=== PATIENT | female | born 1980 | race American Indian/Alaskan Native ===

== ENCOUNTER 2018-04-04 10:51 | Emergency (ER) | payer MEDICAID ==
[~2018-04-04] VITALS: Ht 170.2 cm; Wt 93.7 kg
[~2018-04-04 10:51] MED LIST: IBUP-1594 PO; PHEN-716 PO
[2018-04-04 10:55] VITALS: BP 147/95
[2018-04-04] MEDS ORDERED: DIAZ5TAB PO (11:07)
[2018-04-04] MEDS ORDERED: ketorolac trometh inj. 60 MG/2 ML VIAL IM ONE (11:10)
[2018-04-04] MEDS ORDERED: HYDROcodone/acetaminophen 10/325mg tab PO ONE (11:10)
[2018-04-04] MEDS ORDERED: diazepam 5mg tablet PO ONE (11:10)
== END 2018-04-04 11:41 | disposition home or self-care (01) ==
LOC: ER 10:52
DX: G89.29 Other chronic pain (principal); M54.2 Cervicalgia; J45.909 Unspecified asthma, uncomplicated; Z88.0 Allergy status to penicillin; Z79.899 Other long term (current) drug therapy
CPT/HCPCS: 96372; 99283; J1885

== ENCOUNTER 2018-08-19 06:58 | Emergency (ER) | payer MEDICAID ==
[~2018-08-19] VITALS: Ht 170.2 cm; Wt 83.4 kg
[~2018-08-19 06:58] MED LIST changes: +DIAZ5TAB PO
[2018-08-19] MEDS ORDERED: ondansetron 4 MG/5 ML oral solution 5ml CUP PO ONE (07:25)
[2018-08-19] MEDS ORDERED: nitroGLYCERIN 0.4mg SUBLingual tab SL PRN (07:25)
[2018-08-19] MEDS ORDERED: aspirin 81mg tab.chew PO ONE (07:25)
[2018-08-19] MEDS ORDERED: normal saline 1000ML IV soln IVB ONE ×2 (08:00→09:05)
[2018-08-19 08:06] LABS: PARTIAL THROMBOPLASTIN TIME 26 SECONDS (22-32)
[2018-08-19 08:12] LABS: BASOPHILS % (AUTO) 0.4 % (0-1); EOSINOPHILS % (AUTO) 0.4 % (0-6); HEMATOCRIT 35.9 % (35.0-45.0); HEMOGLOBIN 12.3 g/dl (12.0-16.0); LYMPHOCYTES # (AUTO) 1.4 X10'3 (1.1-4.8); LYMPHOCYTES % (AUTO) 16.8 % (21-51); MEAN CORPUSCULAR HEMOGLOBIN 28.5 PG (27.0-31.0); MEAN CORPUSCULAR HGB CONC 34.2 g/dL (33.0-36.5); MEAN CORPUSCULAR VOLUME 83.4 FL (78-98); MEAN PLATELET VOLUME 7.9 FL (7.4-10.4); MONOCYTES # (AUTO) 0.4 X10'3 (0-0.9); MONOCYTES % (AUTO) 4.5 % (2-12); NEUTROPHILS # (AUTO) 6.6 X10'3 (1.8-7.7); NEUTROPHILS % (AUTO) 77.9 % (42-75); PLATELET COUNT 325 X10'3 (140-440); RED BLOOD COUNT 4.31 X10'6 (4.20-5.60); RED CELL DISTRIBUTION WIDTH 15.8 % (11.5-14.5); WHITE BLOOD COUNT 8.4 X10'3 (4.5-11.0)
[2018-08-19 08:41] LABS: ALANINE AMINOTRANSFERASE 66 U/L (12-78); ALBUMIN/GLOBULIN RATIO 0.8 (1.1-1.5); ALKALINE PHOSPHATASE 63 IU/L (46-116); ANION GAP 8 (8-16); ASPARTATE AMINO TRANSFERASE 67 U/L (10-37); BILIRUBIN,TOTAL 0.2 MG/DL (0.1-1.0); BLOOD UREA NITROGEN 11 MG/DL (7-18); BUN/CREATININE RATIO 18.3 (6.6-38.0); CALCIUM 8.2 MG/DL (8.5-10.1); CHLORIDE 106 MMOL/L (99-107); GLUCOSE 133 MG/DL (70-104); POTASSIUM 3.7 MMOL/L (3.5-5.1); SODIUM 139 MMOL/L (135-145); TOTAL CARBON DIOXIDE 25.2 MMOL/L (24-32); TOTAL PROTEIN 6.7 G/DL (6.4-8.2); eGFR > 90 ML/MIN
[2018-08-19] MEDS ORDERED: morphine 4 MG/ML inj SYRINge IV PRN (09:05)
[2018-08-19] MEDS ORDERED: albuterol 2.5 MG/3 ML nebule NEB ONE (09:05)
[2018-08-19] MEDS ORDERED: ketorolac trometh. 30mg/ml inj. IV ONE (09:05)
[2018-08-19] MEDS ORDERED: diazepam 5mg tablet PO ONE (09:50)
[2018-08-19] MEDS ORDERED: iohexol 350MG/ML 100ml bottle IV ONE (09:52)
--- NOTE | 2018-08-19 10:12 | NUR ---
pt out ot ct via wheelchair with director of teacher education
--- NOTE | 2018-08-19 10:27 | NUR ---
PT. BACK FROM CT.
[2018-08-19 11:09] LABS: LIPASE 239 U/L (73-393)
[2018-08-19] MEDS ORDERED: HYDR-4383 PO (11:45)
[2018-08-19] MEDS ORDERED: NAPR-56 PO (11:45)
[2018-08-19 12:02] VITALS: BP 123/80
== END 2018-08-19 12:05 | disposition home or self-care (01) ==
LOC: ER 06:59
DX: K80.80 Other cholelithiasis without obstruction (principal); R07.89 Other chest pain; R06.02 Shortness of breath; J45.909 Unspecified asthma, uncomplicated; G89.29 Other chronic pain; Z98.890 Other specified postprocedural states; Z88.0 Allergy status to penicillin; Z79.899 Other long term (current) drug therapy
CPT/HCPCS: 36415; 71045; 71275; 80053; 83690; 84484; 85025; 85379; 85610; 85730; 93005; 94640; 94760; 96374; 99284; J1885; J7030; Q9967

== ENCOUNTER 2018-10-09 22:15 | Emergency (ER) | payer MEDICAID ==
[~2018-10-09] VITALS: Ht 170.2 cm; Wt 92.7 kg
[~2018-10-09 22:15] MED LIST changes: +HYDR-4383 PO
[2018-10-09 22:20] VITALS: BP 141/88
[2018-10-11] MEDS ORDERED: ADAL40PE SUBCUT (17:16)
[2018-10-11] MEDS ORDERED: MESA400C4 PO (18:01)
== END 2018-10-10 00:06 | disposition left against medical advice (07) ==
LOC: ER 22:15
DX: K62.5 Hemorrhage of anus and rectum (principal); Z53.21 Procedure and treatment not carried out due to patient leaving prior to being seen by health care provider; Z79.899 Other long term (current) drug therapy

== ENCOUNTER 2018-10-11 16:34 | Emergency (ER) | payer MEDICAID ==
[~2018-10-11] VITALS: Ht 170.2 cm; Wt 90.0 kg
[2018-10-11 17:04] LABS: BASOPHILS % (AUTO) 0.4 % (0-1); EOSINOPHILS # (AUTO) 0.1 X10'3 (0-0.9); EOSINOPHILS % (AUTO) 0.9 % (0-6); HEMATOCRIT 37.6 % (35.0-45.0); HEMOGLOBIN 12.4 g/dl (12.0-16.0); LYMPHOCYTES # (AUTO) 1.7 X10'3 (1.1-4.8); LYMPHOCYTES % (AUTO) 21.1 % (21-51); MEAN CORPUSCULAR HEMOGLOBIN 27.6 PG (27.0-31.0); MEAN CORPUSCULAR HGB CONC 33.1 g/dL (33.0-36.5); MEAN CORPUSCULAR VOLUME 83.4 FL (78-98); MEAN PLATELET VOLUME 7.5 FL (7.4-10.4); MONOCYTES # (AUTO) 0.5 X10'3 (0-0.9); NEUTROPHILS # (AUTO) 5.9 X10'3 (1.8-7.7); NEUTROPHILS % (AUTO) 71.6 % (42-75); PLATELET COUNT 351 X10'3 (140-440); WHITE BLOOD COUNT 8.2 X10'3 (4.5-11.0)
[2018-10-11] MEDS ORDERED: morphine 4 MG/ML inj SYRINge IV ONE (17:10)
[2018-10-11] MEDS ORDERED: famotidine/PF 10 mg/ml inj IV ONE (17:10)
[2018-10-11] MEDS ORDERED: ondansetron/PF 4mg/2ml inj IV ONE (17:10)
[2018-10-11] MEDS ORDERED: normal saline 1000ML IV soln IVB ONE (17:10)
[2018-10-11 17:16] LABS: ALANINE AMINOTRANSFERASE 51 U/L (12-78); ALBUMIN 3.2 G/DL (3.4-5.0); ALBUMIN/GLOBULIN RATIO 0.8 (1.1-1.5); ALKALINE PHOSPHATASE 79 IU/L (46-116); ANION GAP 7 (8-16); ASPARTATE AMINO TRANSFERASE 40 U/L (10-37); BILIRUBIN,TOTAL 0.3 MG/DL (0.1-1.0); BLOOD UREA NITROGEN 11 MG/DL (7-18); BUN/CREATININE RATIO 15.7 (6.6-38.0); CALCIUM 8.6 MG/DL (8.5-10.1); CHLORIDE 105 MMOL/L (99-107); GLUCOSE 102 MG/DL (70-104); LIPASE 258 U/L (73-393); POTASSIUM 4.1 MMOL/L (3.5-5.1); SODIUM 137 MMOL/L (135-145); TOTAL CARBON DIOXIDE 25.3 MMOL/L (24-32); eGFR > 90 ML/MIN
[2018-10-11] MEDS ORDERED: ADAL40PE SUBCUT (17:16)
[2018-10-11 17:55] LABS: OCCULT BLOOD STOOL POSITIVE (Neg)
[2018-10-11] MEDS ORDERED: MESA400C4 PO (18:01)
[2018-10-11 18:43] VITALS: BP 127/55
== END 2018-10-11 18:44 | disposition home or self-care (01) ==
LOC: ER 16:35
DX: K50.90 Crohn's disease, unspecified, without complications (principal); R00.0 Tachycardia, unspecified; R53.83 Other fatigue; J45.909 Unspecified asthma, uncomplicated; G89.29 Other chronic pain; Z88.0 Allergy status to penicillin; Z88.8 Allergy status to other drugs, medicaments and biological substances; Z91.040 Latex allergy status; Z79.899 Other long term (current) drug therapy; Z98.890 Other specified postprocedural states; Z90.721 Acquired absence of ovaries, unilateral
CPT/HCPCS: 36415; 80053; 82272; 83605; 83690; 84145; 85025; 85610; 96374; 96375; 99283; J2270; J2405; J7030

== ENCOUNTER 2019-03-23 19:24 | Emergency (ER) | payer MEDICAID ==
[~2019-03-23] VITALS: Ht 170.2 cm; Wt 88.0 kg
[~2019-03-23 19:24] MED LIST changes: -DIAZ5TAB PO; -IBUP-1594 PO; +MESA400C4 PO; -PHEN-716 PO
[2019-03-23 19:44] VITALS: BP 120/80
--- NOTE | 2019-03-23 20:01 | NUR ---
PT 9 DAYS LATE FOR MENSUS. SEPIS PROTOCOL ORDERED, HOLDING ON CXR UNTIL HCG RESULTED.
[2019-03-23 20:26] LABS: BASOPHILS % (AUTO) 0.4 % (0-1); EOSINOPHILS # (AUTO) 0.1 X10'3 (0-0.9); EOSINOPHILS % (AUTO) 0.7 % (0-6); HEMATOCRIT 40.1 % (35.0-45.0); HEMOGLOBIN 13.4 g/dl (12.0-16.0); LYMPHOCYTES # (AUTO) 1.2 X10'3 (1.1-4.8); LYMPHOCYTES % (AUTO) 15.4 % (21-51); MEAN CORPUSCULAR HEMOGLOBIN 27.1 PG (27.0-31.0); MEAN CORPUSCULAR HGB CONC 33.4 g/dL (33.0-36.5); MEAN CORPUSCULAR VOLUME 81.2 FL (78-98); MEAN PLATELET VOLUME 7.3 FL (7.4-10.4); MONOCYTES # (AUTO) 0.5 X10'3 (0-0.9); NEUTROPHILS # (AUTO) 5.9 X10'3 (1.8-7.7); NEUTROPHILS % (AUTO) 76.5 % (42-75); PLATELET COUNT 435 X10'3 (140-440); RED BLOOD COUNT 4.93 X10'6 (4.20-5.60); RED CELL DISTRIBUTION WIDTH 15.4 % (11.5-14.5); WHITE BLOOD COUNT 7.8 X10'3 (4.5-11.0)
[2019-03-23 20:29] LABS: PARTIAL THROMBOPLASTIN TIME 30 SECONDS (22-32)
[2019-03-23 20:41] LABS: ALANINE AMINOTRANSFERASE 26 U/L (12-78); ALBUMIN 3.7 G/DL (3.4-5.0); ALBUMIN/GLOBULIN RATIO 0.8 (1.1-1.5); ALKALINE PHOSPHATASE 109 IU/L (46-116); ANION GAP 6 (8-16); ASPARTATE AMINO TRANSFERASE 17 U/L (10-37); BILIRUBIN,TOTAL 0.5 MG/DL (0.1-1.0); BLOOD UREA NITROGEN 6 MG/DL (7-18); BUN/CREATININE RATIO 8.1 (6.6-38.0); CHLORIDE 101 MMOL/L (99-107); CREATININE 0.74 MG/DL (0.40-0.90); GLUCOSE 97 MG/DL (70-104); POTASSIUM 3.3 MMOL/L (3.5-5.1); SODIUM 136 MMOL/L (135-145); TOTAL CARBON DIOXIDE 28.8 MMOL/L (24-32); TOTAL PROTEIN 8.6 G/DL (6.4-8.2); eGFR 88 ML/MIN
[2019-03-23] MEDS ORDERED: normal saline 1000ML IV soln IVB ONE ×2 (21:05)
[2019-03-23] MEDS ORDERED: clindamycin phosphate inj 600 MG in normal saline 50ml IV soln 50 ML IV ONE (21:05)
[2019-03-23] MEDS ORDERED: CLIN150C8 PO (21:06)
[2019-03-23 21:07] LABS: HCG SERUM QL POSITIVE
[2019-03-23] MEDS ORDERED: clindamycin 600mg/D5W 50ml 50 ML IV ONE (21:10)
[2019-03-23 21:14] LABS: CLARITY,URINE SLIGHTLY CLOUDY (Clear); COLOR,URINE YELLOW (Yellow); GLUCOSE, URINE NEGATIVE (Neg); KETONES,URINE TRACE mg/dl (Neg); LEUKOCYTE ESTERASE ,URINE TRACE (Neg); NITRITES, URINE POSITIVE (Neg); OCCULT BLOOD,URINE SMALL (Neg); PH,URINE 5.5 (4.8-8.0); PROTEIN,URINE TRACE mg/dl (Neg)
--- NOTE | 2019-03-23 21:15 | NUR ---
CALLED PATIENT HAILEY MUÑOZ AND VERIFIED HER AND PER DR MATAMOROS TOLD THE PATIENT THAT SHE WAS . PATIENT LEFT AMA
[2019-03-23 21:22] LABS: UA COLLECTION TYPE CLN CATCH MIDSTREAM
[2019-03-23 21:29] LABS: BACTERIA,URINE 2+ /HPF (Neg); CAL OXALATE CRYSTALS 2+ /HPF (NEGATIVE); MUCUS STRANDS MANY /LPF (Neg); RBC,URINE 0-2 /HPF (0-2); SQUAMOUS EPITHELIAL CELL,UR FEW /LPF (FEW)
[2019-03-23 21:40] LABS: URINE AMPHETAMINE SCREEN POSITIVE (Neg); URINE BARBITUATE SCREEN NEGATIVE (Neg); URINE BENZODIAZEPINES SCREEN NEGATIVE (Neg); URINE CANNABINOID SCREEN POSITIVE (Neg); URINE COCAINE SCREEN NEGATIVE (Neg); URINE METHADONE SCREEN NEGATIVE (Neg); URINE OPIATE SCREEN POSITIVE (Neg); URINE PHENCYCLIDINE SCREEN NEGATIVE (Neg)
== END 2019-03-23 21:24 | disposition left against medical advice (07) ==
LOC: ER 19:24
DX: O26.899 Other specified pregnancy related conditions, unspecified trimester (principal); L02.414 Cutaneous abscess of left upper limb; L03.114 Cellulitis of left upper limb; O99.519 Diseases of the respiratory system complicating pregnancy, unspecified trimester; O99.320 Drug use complicating pregnancy, unspecified trimester; G89.29 Other chronic pain; J45.909 Unspecified asthma, uncomplicated; F19.10 Other psychoactive substance abuse, uncomplicated; Z3A.00 Weeks of gestation of pregnancy not specified; Z90.89 Acquired absence of other organs; Z88.0 Allergy status to penicillin; Z91.040 Latex allergy status; Z88.8 Allergy status to other drugs, medicaments and biological substances; Z79.899 Other long term (current) drug therapy
CPT/HCPCS: 36415; 80053; 80305; 81001; 83605; 84145; 84703; 85025; 85610; 85730; 87040; 87077; 87088; 87186; 99283; J3490

== ENCOUNTER 2021-07-06 05:48 | Day surgery (SDC) | payer MEDICAID ==
[2021-06-30 12:12] LABS: BASOPHILS % (AUTO) 0.5 % (0-1); EOSINOPHILS # (AUTO) 0.1 X10'3 (0-0.9); EOSINOPHILS % (AUTO) 1.8 % (0-6); LYMPHOCYTES # (AUTO) 2.1 X10'3 (1.1-4.8); LYMPHOCYTES % (AUTO) 30.3 % (21-51); MEAN CORPUSCULAR HEMOGLOBIN 26.2 PG (27.0-31.0); MEAN CORPUSCULAR HGB CONC 32.7 g/dL (33.0-36.5); MEAN PLATELET VOLUME 7.6 FL (7.4-10.4); MONOCYTES # (AUTO) 0.5 X10'3 (0-0.9); MONOCYTES % (AUTO) 7.6 % (2-12); NEUTROPHILS # (AUTO) 4.1 X10'3 (1.8-7.7); NEUTROPHILS % (AUTO) 59.8 % (42-75); PRE OP HEMATOCRIT 36.9 % (35.0-45.0); PRE OP HEMOGLOBIN 12.1 g/dL (12.0-16.0); PRE OP PLATELET COUNT 393 X10'3 (140-440); RED BLOOD COUNT 4.61 X10'6 (4.20-5.60); RED CELL DISTRIBUTION WIDTH 15.5 % (11.5-14.5)
[2021-06-30 12:40] LABS: ALBUMIN 3.6 G/DL (3.4-5.0); ALBUMIN/GLOBULIN RATIO 0.9 (1.1-1.5); ALKALINE PHOSPHATASE 68 IU/L (46-116); BLOOD UREA NITROGEN 10 MG/DL (7-18); BUN/CREATININE RATIO 16.4 (6.6-38.0); CALCIUM 8.8 MG/DL (8.5-10.1); CHLORIDE 104 MMOL/L (99-107); CREATININE 0.61 MG/DL (0.40-0.90); PRE OP ALT 35 U/L (30-65); PRE OP ANION GAP 7 (8-16); PRE OP AST 20 U/L (10-37); PRE OP BILIRUB, TOTAL 0.4 MG/DL (0.0-1.0); PRE OP GLUCOSE 89 MG/DL (70-104); PRE OP POTASSIUM 3.5 MMOL/L (3.4-5.1); PRE OP SODIUM 140 MMOL/L (135-145); TOTAL CARBON DIOXIDE 28.9 MMOL/L (24-32); TOTAL PROTEIN 7.7 G/DL (6.4-8.2); eGFR > 90 ML/MIN
[2021-06-30 13:33] LABS: HCG SERUM QL NEGATIVE
[~2021-07-06] VITALS: Ht 170.2 cm; Wt 105.6 kg
[2021-07-06] VITALS (8 sets, daily range): BP systolic 121–136; BP diastolic 80–90
[~2021-07-06 05:48] MED LIST changes: +ADAL40PE SQ; +ALBU6.7H9 INH; +BECL10.62 INH; +CHOL500050; +HYDR-3972 PO; -HYDR-4383 PO; +MELO-102 PO; -MESA400C4 PO; +MONT10TA21 PO; +PREN1TAB79 PO; +clindamycin-Cleocin 900mg/D5W 50 ML IV ONE; +famotidine 20mg tablet PO ONE; +ringers solution, lacted 1,000 ML IV SCH
[2021-07-06] MEDS ORDERED: BUPIVAcaine 0.5% inj/PF 0 ML ONE (06:35)
[2021-07-06] MEDS ORDERED: LIDOcaine 0.5% (5mg/ml) 50ml vial ONE (07:05)
[2021-07-06] MEDS ORDERED: morphine 4 MG/ML inj SYRINge IV PRN (07:10)
[2021-07-06] MEDS ORDERED: fentaNYL/PF 50MCG/1 ML 2ML syringe IV PRN ×2 (07:10)
[2021-07-06] MEDS ORDERED: morphine 2 MG/ML inj. syringe IV PRN (07:10)
[2021-07-06] MEDS ORDERED: hydrALAZINE 20mg/ml inj. IV PRN (07:10)
[2021-07-06] MEDS ORDERED: labetalol 20mg/4ml (5mg/ml) syringe IV PRN (07:10)
[2021-07-06] MEDS ORDERED: ondansetron/PF 4mg/2ml inj IV PRN (07:10)
[2021-07-06] MEDS ORDERED: ringers solution, lacted 1,000 ML IV SCH (07:10)
[2021-07-06] MEDS ORDERED: fentaNYL /PF 50mcg/ml 5ml ampule ONE (07:16)
[2021-07-06] MEDS ORDERED: MIDAZolam 1mg/ml 10ml vial ONE (07:16)
[2021-07-06] MEDS ORDERED: BUPIVAcaine 0.5% inj/PF 30 ML ONE (08:15)
--- NOTE | 2021-07-06 08:23 | NUR ---
Received from OR via [facility], accompanied by Anesthesiologist DR AGUILAR and report given by Anesthesiolgist. PT PREENTS WITH PIV 320G RIGHT HAND, DRESSING ON LEFT HAND MIDDLE FINGER CDI, VSS. Addendum: 07/06/21 at 0836 by Sunita Ceballos RN, RN Amended: Links added.
[2021-07-06] MEDS ORDERED: HYDROcodone/acetaminophen 5mg/325mg tablet PO ONE (09:05)
--- NOTE | 2021-07-06 09:13 | NUR ---
PATIENT DISCHARGED FROM PACU IN STABLE CONDITION AFTER WRITTEN AND VERBAL DISCHARGE INSTRUCTIONS GIVEN. PATIENT GAVE VERBAL UNDERSTANDING OF INSTRUCTIONS GIVEN. PATIENT LEFT FACILITY VIA WHEELCHAIR WITH RN. Addendum: 07/06/21 at 0920 by Sunita Ceballos RN, RN Amended: Links added.
== END 2021-07-06 09:13 | disposition home or self-care (01) ==
LOC: PAS 05:48
PROVIDERS: ATTEND Orthopaedic Surgery Hand Surgery
DX: S62.633A Displaced fracture of distal phalanx of left middle finger, initial encounter for closed fracture (principal); J44.9 Chronic obstructive pulmonary disease, unspecified; E66.9 Obesity, unspecified; Z68.36 Body mass index [BMI] 36.0-36.9, adult; Z79.899 Other long term (current) drug therapy; Z90.49 Acquired absence of other specified parts of digestive tract; Z98.890 Other specified postprocedural states; Z90.710 Acquired absence of both cervix and uterus; Z87.891 Personal history of nicotine dependence; Z88.0 Allergy status to penicillin; Z91.040 Latex allergy status; Z91.09 Other allergy status, other than to drugs and biological substances; Z72.89 Other problems related to lifestyle; Z86.14 Personal history of Methicillin resistant Staphylococcus aureus infection; Z20.822 Contact with and (suspected) exposure to COVID-19; W20.8XXA Other cause of strike by thrown, projected or falling object, initial encounter; Y93.89 Activity, other specified; Y99.8 Other external cause status; Y92.89 Other specified places as the place of occurrence of the external cause
CPT/HCPCS: 26746; 36415; 80053; 82948; 84703; 85025; A6222; C1713; J2250; J3010; J3490; J7030; J7120; S0020; U0003; U0005; Z7506; Z7512; A4215; A4618; A6449; A7000